=== PATIENT | female | born 1985 | race Caucasian/White ===

== ENCOUNTER 2022-10-29 20:38 | Emergency (ER) | payer MEDICAID ==
[~2022-10-29] VITALS: Ht 162.6 cm; Wt 97.5 kg
--- NOTE | 2022-10-29 20:40 | NUR ---
PT BROUGHT TO BED 9 VIA [facility]IN[facility]
[2022-10-29 20:41] VITALS: BP 176/106
[2022-10-29] MEDS ORDERED: LORazepam 2 MG/ML VIAL IVP ONE (20:45)
[2022-10-29] MEDS ORDERED: NACL 0.9% 1,000 ML IV ONE (20:45)
[2022-10-29] MEDS ORDERED: CLONIDINE HYDROCHLORIDE 0.1 MG TAB PO ONE (20:45)
[2022-10-29 21:01] LABS: BASOPHILS # (AUTO) 0.1 K/uL (0.00-0.22); BASOPHILS % (AUTO) 0.9 % (0.0-2.0); EOSINOPHILS # (AUTO) 0.1 K/uL (0-0.4); EOSINOPHILS % (AUTO) 0.5 % (0.0-4.0); HEMATOCRIT 37.8 % (36-48); HEMOGLOBIN 12.9 g/dL (12.0-16.0); LYMPHOCYTES # (AUTO) 2.4 K/uL (2.5-16.5); LYMPHOCYTES % (AUTO) 24.5 % (20.5-51.1); MEAN CORPUSCULAR HEMOGLOBIN 29 pg (27-31); MEAN CORPUSCULAR HGB CONC 34 g/dL (33-37); MEAN CORPUSCULAR VOLUME 83.7 fL (80-94); MONOCYTES # (AUTO) 0.6 K/uL (0.8-1.0); MONOCYTES % (AUTO) 6.1 % (1.7-9.3); NEUTROPHILS # (AUTO) 6.8 K/uL (1.8-7.7); PLATELET COUNT (AUTO) 351 K/uL (140-450); RED BLOOD CELL COUNT(AUTO) 4.52 MIL/uL (4.20-5.40); RED CELL DISTRIBUTION WIDTH 14.3 % (11.6-13.7)
[2022-10-29 21:23] LABS: POTASSIUM 4.2 mmol/L (3.5-5.1)
[2022-10-29 21:24] LABS: ANION GAP 9.6 (8-16); CARBON DIOXIDE 27.6 mmol/L (21-32); CREATININE 0.7 mg/dL (0.6-1.3); TOTAL BILIRUBIN 0.5 mg/dL (0.0-1.0)
[2022-10-29 21:25] LABS: ALBUMIN 3.4 g/dL (3.4-5.0)
[2022-10-29 21:51] VITALS: BP 149/78
--- NOTE | 2022-10-29 21:53 | NUR ---
Patient discharged with v/s stable. Written and verbal after care instructions given and explained. Patient verbalized understanding. Ambulatory with steady gait. All questions addressed prior to discharge. Advised to follow up with PMD.
--- NOTE | 2022-11-06 13:02 | NUR ---
LATE ENTRY- 1LNS BOULS ORDER BY ER/MD DR FOREMAN- 5497 -GIVEN 1000ML NS-NADR
== END 2022-10-29 21:53 | disposition home or self-care (01) ==
LOC: MED 20:38
DX: F41.9 Anxiety disorder, unspecified (principal); I10 Essential (primary) hypertension; R00.2 Palpitations
CPT/HCPCS: 36415; 80053; 84703; 85025; 93005; 96361; 96374; 99283; J2060